=== PATIENT | male | born 1990 | race Hispanic/Latino ===

== ENCOUNTER 2025-02-14 10:25 | Inpatient (IN) | payer OTHER, SELFPAY ==
[2025-02-13] VITALS (8 sets, daily range): BP systolic 103–130; BP diastolic 60–89; BMI 39.6; BMI 38.6; BMI 38.3
[2025-02-13 15:03] LABS: Hematocrit 40.1 % (39.0-52.0); Hemoglobin 14.0 g/dL (13.0-18.0); Mean Corp Hgb Conc. 34.9 g/dL (33.0-37.0); Mean Corpuscular Volume 92.8 fL (80.0-94.0); Nucleated Red Blood Cells % 0 % (-); Platelet Count 204 10^3/uL (130-400); Red Cell Dist. Width 13.2 % (11.5-14.5)
[2025-02-13 15:19] LABS: ALT (SGPT) 52 U/L (0-50); AST (SGOT) 31 U/L (17-59); Albumin 4.5 g/dl (3.5-5.0); Alkaline Phosphatase 67 U/L (38-126); Blood Urea Nitrogen 14 mg/dl (9-20); Calcium 9.0 mg/dl (8.4-10.2); Carbon Dioxide 27 mmol/L (22-30); Chloride 103 mmol/L (98-107); Glucose 142 mg/dl (70-99); Lipase 91 U/L (23-300); Potassium 4.2 mmol/L (3.5-5.1); Sodium 136 mmol/L (135-145); Total Protein 7.0 g/dl (6.3-8.2); eGFR > 60.00
--- NOTE | 2025-02-13 15:53 | ED.GENMED ---
History of Present Illness
General
Chief Complaint: Abdominal Pain
Time Seen by Provider: 02/13/25 15:44
History of Present Illness
History of Present Illness:
Patient is a 35-year-old Cypriot-speaking male with no reported chronic medical problems here today for evaluation of approximately 1 day of right lower quadrant abdominal pain. The pain at times radiates into the right testicle. He also reports
associated nausea, vomiting, and fevers. No diarrhea. No urinary symptoms. No concern for a sexually transmitted infection. No other acute complaints.
Review of Systems
Review of Systems
All Other Systems: ROS reviewed and negative except as documented in HPI and ROS
Phy Exam
Physical Exam
Physical Exam:
GENERAL: Alert , in no apparent distress
EYE: normal conjunctiva
NECK: Supple
ENT: o/p clr, mmm.
CARDIAC: Regular rate and rhythm .
LUNGS: Clear breath sounds bilaterally, no acute respiratory distress, no wheezes/rales/rhonchi
ABDOMEN: Soft, moderately tender along the right lower quadrant, no rebound/guarding
GENITAL: slight discomfort with palpation along the right testicular region but there is no masses or swelling or rashes
NEUROLOGICAL: Alert and oriented, no focal neuro deficits
SKIN: Warm and dry, skin intact.
MUSCULOSKELETAL: No edema, well perfused.
PSYCH: Normal and appropriate interaction.
Course
Orders/Labs/Results
Orders:
Orders
02/13/25 14:51
Complete Blood Count/With Diff Urgent
Comprehensive Metabolic Panel Urgent
Lipase Urgent
02/13/25 15:51
CT Abd/pelvis W Iv Cont Urgent
Comment:
Reason For Exam: abd pain rlq, fever
02/13/25 16:21
Morphine Sulfate 4 mg IV NOW STA
Ondansetron Injectable [Zofran] 4 mg IV NOW STA
02/13/25 16:36
Urinalysis Reflex To Culture Urgent
Date Specimen was Collected: 02/13/25
Time Specimen was Collected: 16:31
Urine Microscopic Reflex Cult Urgent
Chlamydia/GC by PCR Urgent
DUY Source: Urine
Specimen Description:
Source:: URINE
Date Specimen was Collected: 02/13/25
Time Specimen was Collected: 16:31
Urine Culture Urgent
DUY Source: U
Specimen Description:
Date Specimen was Collected: 02/13/25
Time Specimen was Collected: 16:31
02/13/25 17:48
0.9% Sodium Chloride 1000 ml [Nss] 1,000 ml IV BOLUS
Acetaminophen 1000MG/100Ml [Ofirmev] 1,000 mg in 100 ml IV ONCE
Acetaminophen IV Indication:: Targeted Temp Management
Piperacillin/Tazo 3.375 Gram [Zosyn] 3.375 gram in 50 ml IV NOW
Abnormal Lab Results
02/13/25 02/13/25
14:51 16:36
WBC 16.4 H 10^3/uL
(4.8-10.8)
RBC 4.32 L 10^6/uL
(4.70-6.10)
MCH 32.4 H pg
(27.0-31.0)
Abs Immat Gran (auto) 0.1 H 10^3/uL
(0-0.05)
Absolute Neuts (auto) 14.7 H 10^3/uL
(1.4-6.5)
Absolute Lymphs (auto) 0.7 L 10^3/uL
(1.2-3.4)
Absolute Monos (auto) 0.9 H 10^3/uL
(0.1-0.6)
Neutrophils % 89.3 H %
(42.2-75.2)
Lymphocytes % 4.4 L %
(20.5-51.1)
Glucose 142 H mg/dl
(70-99)
Total Bilirubin 1.5 H mg/dl
(0.2-1.3)
ALT 52 H U/L
(0-50)
Urine Ketones 3+ A
(Negative)
Leukocyte Esterase Rfl 1+ A
(Negative)
Urine Bacteria (Reflex) Moderate A
(Negative)
Urine Albumin (Reflex) 1+ A
(Neg - Trace)
02/13/25 14:51
02/13/25 14:51
Vital Signs
Initial and Last Documented VS:
Initial Vital Signs
Temp Pulse Resp BP Pulse Ox
99.2 F 108 18 130/89 99
02/13/25 14:44 02/13/25 14:44 02/13/25 14:44 02/13/25 14:44 02/13/25 14:44
Last Documented Vital Signs
Temp Pulse Resp BP Pulse Ox
99.2 F 100 15 127/70 98
02/13/25 14:44 02/13/25 16:37 02/13/25 16:37 02/13/25 16:37 02/13/25 16:37
MDM/Problems Addressed
Differential Diagnosis Includes:
Patient is a 35-year-old Cypriot-speaking male with no reported chronic medical problems here today for evaluation of approximately 1 day of right lower quadrant abdominal pain. Overall, patient well-appearing. Vital signs remarkable for a mildly
elevated heart rate and temperature. Physical examination above. On examination the patient is moderately tender along the right lower quadrant. There is no rebound or guarding. There is also slight discomfort with palpation along the right
testicular region but there is no masses or swelling or rashes. No penile discharge. Blood work was obtained in triage which reveals a leukocytosis of 16.4 thousand. There is neutrophil predominance. There is also elevations in glucose to 142,
total bilirubin of 1.5, and ALT of 52. Remaining blood work within normal limits. We will add on urinalysis and a CT scan of the abdomen and pelvis with IV contrast. My primary concern would be acute appendicitis however differential also
includes a testicular pathology. If negative, patient may require ultrasound imaging of the scrotum.
02/13/2025 17:49: Preliminary read of CT reveals acute appendicitis without perforation. Case was discussed with general surgery who will evaluate patient at bedside. NPO. Will provide IV fluids, antibiotics with Zosyn, and IV Tylenol. Fever now
present to 102 �F.
*Pulse Oximetry
SaO2: 99
Oxygen Mode of Delivery: Room air
ED Attending Note
-
Portions of this chart may have been created with voice recognition software.� Occasional wrong word or��sound alike� substitutions may have occurred due to the inherent limitations of voice recognition software.
Discharge Plan
Departure
Patient Disposition: Admit
Date of Disposition: 02/13/25
Time of Disposition: 17:55
Admit to: OR
Admit to doctor: Damian Reynoso
Presentation/result/management discussed w/ accepting MD/DO: Damian Ryenoso, surgery
Patient with high blood pressure during this ER visit?: No
Discharge Problem:
Acute appendicitis
Referrals:
NONE,* [Family Provider, Internal Medicine]
Interventions
Interventions:
*Risk Screen - Suicide Last Done: 02/13/25 14:44
*General Assessment Last Done: 02/13/25 14:44
*Neglect/Abuse Screening Last Done: 02/13/25 14:44
HR-Ffwjlh-Fbbbiagcdk Assessment Last Done: 02/13/25 16:42
Discharge Date and Time
Print Language: RUSSIAN
[2025-02-13] MEDS: ZOFRAN 4 MG IV (16:32)
[2025-02-13] MEDS: MORPHINE SULFATE 4 MG IV (16:32)
[2025-02-13 16:48] LABS: Urine Character Clear (Clear)
[2025-02-13 16:58] LABS: Urine Red Blood Cell 0-2 /HPF (0-2); Urine Squamous Cell 0-2 /LPF (Few)
[2025-02-13] MEDS: NSS 1000 IV (17:55)
[2025-02-13] MEDS: ZOSYN 50 IV ×2 (17:56→23:05)
[2025-02-13] MEDS: OFIRMEV 100 IV (17:56)
--- NOTE | 2025-02-13 20:33 | W.SUR.PREOP ---
Pre-Operative Surgical Note
-
I have examined this patient prior to the performance of the scheduled procedure.
The patient's condition is unchanged from the time of the current History and
Physical and the patient is able to undergo the scheduled procedure.
--- NOTE | 2025-02-13 20:33 | HPS.HSE ---
Family Physician
-
Family Physician: Damian Reynoso MD
Chief Complaint
-
Abdominal pain
History of Present Illness
This is a 35-year-old Czech-speaking male with no significant medical or surgical history who presents with a 1 day history of a significant worsening right lower quadrant pain. The patient denies Fever, Chest Pain, Shortness Of Breath, Nausea,
Vomiting, changes in urinary and bowel habits, unintentional weight loss.
Medical History
Past Medical History
Past Medical History: Reports None
Past Surgical History: Reports None
Social History
Tobacco: Non-smoker
Personal: Single
Employment: Employed (Works in construction)
Family History
Family History: Not pertinent
Allergies / Home Medications
Allergies reflects when Allergies were last updated in [facility].
Home Medications with original date entered in [facility]
Allergy/Medication List:
None
Review of Systems
-
History Source: Patient
A 12 point ROS was completed and negative except as noted: Yes
Physical Exam
Vital Signs
Vital Signs
Temp Pulse Resp BP Pulse Ox
98.8 F 107 19 127/70 99
02/13/25 19:01 02/13/25 18:15 02/13/25 18:15 02/13/25 16:37 02/13/25 18:15
Physical Exam
General: Well Developed
HEENT: NormoCephalic
Respiratory: Clear
GI: Soft, Non Distended and Tender (Focally tender to palpation in the right lower quadrant)
Laboratory Results
-
02/13/25 14:51
02/13/25 14:51
Laboratory Results
Total Bilirubin 1.5 mg/dl (0.2-1.3) H 02/13/25 14:51
AST 31 U/L (17-59) 02/13/25 14:51
ALT 52 U/L (0-50) H 02/13/25 14:51
Alkaline Phosphatase 67 U/L (38-126) 02/13/25 14:51
Lipase 91 U/L (23-300) 02/13/25 14:51
Data Reviewed
-
CT Scan: Image Personally Visualized and interpreted, Report Reviewed by me, Discussed with Physician and Discussed with Patient
Lab Data: Labs Reviewed by me and Discussed with Patient
Impression/Plan
-
IMPRESSION: This is a 35-year-old male who presents with a 1 day history of sudden onset of right lower quadrant pain. Tachycardic, febrile, leukocytosis. Exam, imaging, blood work all consistent with acute appendicitis, likely with local
perforation.
PLAN:
Will plan for a laparoscopic appendectomy.
N.p.o., IV fluids, IV antibiotics.
Risks/Benefits/Alternatives, expected postoperative course and possible complications (bleeding, infection, injury to surrounding structures, acute/chronic pain) discussed at length. Patient wishes to proceed with surgery. All questions answered.
Consent obtained.
I spent 75 minutes in total for the care of this patient today including direct patient care and counseling, reviewing labs, imaging, coordination of care, as well as documentation.
--- NOTE | 2025-02-13 20:39 | W.IMMPOSTOP ---
Surgical Immed Post Op Note
-
Primary Surgeon: Damian Reynoso MD
Assisting Surgeon: None
Pre-op Diagnosis: Acute appendicitis
Post-op Diagnosis: Acute perforated gangrenous appendicitis
Procedure Performed:
1. Laparoscopic appendectomy
2. Drainage of intra-abdominal abscess
Anesthesia Type: General
Specimen / Cultures: Right lower quadrant abscess
Estimated Blood Loss: 7 cc
Complications: None
Operative Findings: Perforated necrotic retrocecal appendix with focal abscess that was cultured. After dividing the mesentery the base of the appendix was isolated and noted to be healthy so was ligated with 2-0 PDS Endoloops. Given the degree of
contamination, a 19 Polish round Al drain was introduced through the left lower quadrant port and secured to the skin with a 2-0 Prolene suture.
POST OP PLAN:
Imaging: None
Labs: Routine AM
Diet: Clears, expect ileus
Analgesia: Tylenol 650mg q6 Shira, Dilaudid 0.5mg q2h PRN
Neuro/vascular checks: Per unit protocol
AC/AP: Hold Therapeutic AC, Ok for DVT PPx
Activity: Ad Tabatha
Wound/Incisions/Drains: Routine
Abx: Zosyn or equivalent x 4 days
Dispo: RNF
[2025-02-13] MEDS: DILAUDID 0.25 MG IV (20:40)
--- NOTE | 2025-02-13 20:41 | OR.RPT ---
Operative Report
Operative Report
Patient Name: Diomedes Luis
: 1990
Date of Operation: 02/13/2025
Preoperative Diagnosis: Acute Appendicitis
Postoperative Diagnosis: Acute perforated gangrenous appendicitis
Procedure(s):
Laparoscopic Appendectomy
Drainage of an intra-abdominal abscess
Surgeon(s):
Dr. Reynoso
Hydroelectric Systems Technician(s):
None
Anesthesia: General
Estimated Blood Loss: 7 cc
Urine Output: None
Drains/Lines/Implants: 19 Japanese round Al drain
Specimens:
1. Appendix
HPI/Surgical Indications:
This is a 35-year-old male who presents with a 1 day history of abdominal pain. Exam, labs and imaging are consistent with acute appendicitis. Risks/Benefits/Alternatives were discussed at length, and the patient agreed to proceed with surgery.
Operative Findings: Perforated necrotic retrocecal appendix with focal abscess that was cultured. After dividing the mesentery the base of the appendix was isolated and noted to be healthy so was ligated with x2 0 PDS Endoloops. Given the degree
of contamination, a 19 Japanese round Al drain was introduced through the left lower quadrant port and secured to the skin with a 2-0 Prolene suture.
Procedure Description:
The patient was placed in the supine position, with the left arm tucked, and general anesthesia was induced. The abdomen was prepared and draped in a sterile fashion so as to expose the entire abdomen. A surgical time out was taken. Abdominal access
was obtained with a left upper quadrant Veress entry which required a single pass followed by left lower quadrant 5 mm Optiview trocar. After confirming no injury on entrance, two additional 5mm ports were placed in the suprapubic area just off
midline and just below the umbilicus. The patient was placed in Trendelenberg with the right slightly up . The appendix was identified and found to be necrotic/gangrenous without focal perforation and somewhat retrocecal location. The appendix was
freed and rotated into its proper orientation. A window was created in the mesoappendix. Using a laparoscopic bipolar energy device, the meso appendix was divided. The base of the appendix appeared uninvolved and was ligated/divided using two 0-PDS
Endoloops and the energy device. The appendix was placed in a specimen retrieval bag. The right lower quadrant and pelvis was irrigated and suctioned until dry. A 19 Japanese round Al drain was then introduced through the left lower quadrant port
and passed across the abdomen into the right lower quadrant. Hemostasis was confirmed and the ports were removed under visualization. The specimen was passed off the field. The umbilical port was closed with a [id number] 0-PDS and the skin for
all ports was closed with interrupted monocryls and covered with dermabond. The patient was awoken from anesthesia in good condition and transported to the recovery area.
I was the attending physician and performed the procedure with no assistance. I was present for all portions of the case.
Damian Reynoso MD
[2025-02-13] MEDS: NORMOSOL-R/PLASMALYTE-A 1000 IV (22:05)
[2025-02-13] MEDS: TORADOL 10 MG IV (22:10)
[2025-02-13] MEDS: TYLENOL 650 MG PO (23:03)
[2025-02-14 03:00] VITALS: BP 121/71
[2025-02-14] MEDS: TYLENOL PO (05:24)
[2025-02-14] MEDS: TORADOL 10 MG IV ×4 (05:26→21:03)
[2025-02-14] MEDS: ZOSYN 50 IV ×3 (05:27→17:24)
[2025-02-14 06:49] LABS: Hematocrit 36.2 % (39.0-52.0); Hemoglobin 12.5 g/dL (13.0-18.0); Mean Corp Hgb Conc. 34.5 g/dL (33.0-37.0); Mean Corpuscular Volume 94.5 fL (80.0-94.0); Platelet Count 178 10^3/uL (130-400); Red Cell Dist. Width 13.3 % (11.5-14.5)
[2025-02-14 07:14] LABS: Blood Urea Nitrogen 16 mg/dl (9-20); Calcium 8.4 mg/dl (8.4-10.2); Carbon Dioxide 27 mmol/L (22-30); Chloride 104 mmol/L (98-107); Estimated Creatinine Clearance 105 ml/min; Glucose 160 mg/dl (70-99); Potassium 4.1 mmol/L (3.5-5.1); Sodium 137 mmol/L (135-145); eGFR > 60.00
[2025-02-14 07:26] VITALS: BP 117/66
[2025-02-14] MEDS: TYLENOL 650 MG PO ×4 (08:59→21:03)
[2025-02-14] MEDS: NORMOSOL-R/PLASMALYTE-A 1000 IV ×2 (09:14→22:12)
--- NOTE | 2025-02-14 09:43 | W.PN.GS2 ---
Addendum entered and electronically signed by Arturo Walton MD 02/14/25 11:19:
Patient seen and examined.
No major complaints. Denies worsening abdominal pain. No nausea or vomiting. Reports passing flatus, no BM.
Gen: NAD
Abd: soft, mild tenderness, ND, non-peritoneal, incisions c/d/i - no erythema, ecchymosis or drainage, ELIZABETH serosang mild purulence in tubing with strip
Patient is a 35 yo M presenting with acute perforated gangrenous appendicitis now POD #1 lap appi with drainage of intraabdominal abscess
Afebrile since OR, VSS
Leukocytosis improving
High risk for ileus, but currently passing flatus and tolerating clear liquids
ELIZABETH with SSF
Plan:
-- Advance to full liquids and follow for po tolerance
-- C/W IVF
-- C/W ELIZABETH drain
-- Analgesics with scheduled Tylenol/toradol and prn narcotics
-- C/W IV zosyn, plan a total of 4 day course of abx (transition to PO upon d/c)
-- Lovenox for VTE ppx
Original Note:
Today's Communication / Plan
-
C/W ABX
Dietary advancements
Assessment / Plan
-
35 yo male presenting with acute perforated gangrenous appendicitis now POD #1 lap appi with drainage of intraabdominal abscess
Afebrile since OR, VSS
Leukocytosis improving
High risk for ileus, but currently passing flatus and tolerating clear liquids
ELIZABETH with SSF
Plan:
Advance to full liquids and follow for po tolerance
C/W IVF
C/W ELIZABETH drain
Analgesics with scheduled Tylenol/toradol and prn narcotics
C/W IV zosyn, plan a total of 4 day course of abx (transition to PO upon d/c)
Lovenox for VTE ppx
Subjective Data
-
Date of Service: February 14, 2025
Pt seen and examined at bedside with Dr. Walton. Denies n/v. Passing some flatus. Asking for food. Pain well managed.
Objective Data
-
Intake and Output
02/13/25 02/14/25 02/15/25
06:59 06:59 06:59
Intake Total 1165 / 1165 240 / 240
Output Total 655 / 655
Balance 1165 / 1165 -415 / -415
Intake:
Oral fluids 240 / 240 240 / 240
IV fluids (Total) 825 / 825
normosol 50 / 50
IV piggybacks 100 / 100
Output:
Drain Output (Total) 5 / 5
Left Patricio-Chan 5 / 5
Urine, Voided 650 / 650
Vital Signs
Temp Pulse Resp BP Pulse Ox
97.7 F 77 16 117/66 98
02/14/25 07:26 02/14/25 07:26 02/14/25 07:26 02/14/25 07:26 02/14/25 07:26
Lab Results
02/14/25 06:08
02/14/25 06:08
Calcium 8.4 mg/dl (8.4-10.2) 02/14/25 06:08
Total Bilirubin 1.5 mg/dl (0.2-1.3) H 02/13/25 14:51
AST 31 U/L (17-59) 02/13/25 14:51
ALT 52 U/L (0-50) H 02/13/25 14:51
Alkaline Phosphatase 67 U/L (38-126) 02/13/25 14:51
Total Protein 7.0 g/dl (6.3-8.2) 02/13/25 14:51
Albumin 4.5 g/dl (3.5-5.0) 02/13/25 14:51
Physical Exam
-
NAD
ABD soft, ND, mildly tender, BOTTOM STAINER
Incisions intact glue, well approximated
ELIZABETH with ssf with some fibrinous debris
[2025-02-14 11:04] VITALS: BP 127/64
[2025-02-14 15:29] VITALS: BP 131/66
[2025-02-14] MEDS: LOVENOX 40 MG SC (17:23)
[2025-02-14 19:00] VITALS: BP 116/68
[2025-02-14 23:00] VITALS: BP 131/73
[2025-02-15] MEDS: ZOSYN 50 IV ×4 (00:26→18:03)
[2025-02-15] MEDS: TYLENOL 650 MG PO ×4 (00:26→21:42)
[2025-02-15] MEDS: TORADOL 10 MG IV (04:10)
[2025-02-15 07:49] VITALS: BP 132/76
[2025-02-15] MEDS: TYLENOL PO ×2 (08:19→16:29)
[2025-02-15] MEDS: NORMOSOL-R/PLASMALYTE-A IV (10:37)
[2025-02-15] MEDS: D5/0.45%NACL 500 IV (10:37)
[2025-02-15 10:45] LABS: Hematocrit 31.8 % (39.0-52.0); Hemoglobin 11.0 g/dL (13.0-18.0); Mean Corp Hgb Conc. 34.6 g/dL (33.0-37.0); Mean Corpuscular Volume 93.5 fL (80.0-94.0); Platelet Count 172 10^3/uL (130-400); Red Cell Dist. Width 12.6 % (11.5-14.5)
[2025-02-15 11:03] LABS: Blood Urea Nitrogen 15 mg/dl (9-20); Calcium 8.5 mg/dl (8.4-10.2); Carbon Dioxide 27 mmol/L (22-30); Chloride 107 mmol/L (98-107); Estimated Creatinine Clearance 105 ml/min; Glucose 115 mg/dl (70-99); Potassium 3.6 mmol/L (3.5-5.1); Sodium 137 mmol/L (135-145); eGFR > 60.00
--- NOTE | 2025-02-15 12:33 | W.PN.GS2 ---
Today's Communication / Plan
-
-- LRD
-- Abx: Zosyn
Assessment / Plan
-
35 yo male presenting with acute perforated gangrenous appendicitis now POD #2 lap appi with drainage of intraabdominal abscess
Low grade fever, VSS
Leukocytosis resolved
High risk for ileus, but currently passing flatus, BMs and and tolerating fulls
ELIZABETH with purulence
Plan to monitor in the hospital for an additional day for dietary tolerance, antibiotics, and ELIZABETH drain management
Plan:
-- LRD
-- HLIV
-- C/W ELIZABETH drain
-- Pain control: Tylenol, Toradol and prn narcotics
-- Abx: Zosyn
-- DVT: Lovenox
Subjective Data
-
Date of Service: February 15, 2025
Reports of mild abdominal soreness, no worse from previous. No nausea or vomiting. Passing loose stools and some flatus. Low-grade fevers at this morning. Ambulating. Voiding.
Objective Data
-
Intake and Output
02/14/25 02/15/25 02/16/25
06:59 06:59 06:59
Intake Total 1165 / 1165 3400 / 3400
Output Total 673 / 673
Balance 1165 / 1165 2727 / 2727
Intake:
Oral fluids 240 / 240 800 / 800
IV fluids (Total) 825 / 825 2400 / 2400
normosol 50 / 50
IV piggybacks 100 / 100 200 / 200
Output:
Drain Output (Total)
Left Patricio-Chan
Urine, Voided 650 / 650
Other:
Number of approximated MODERATE 2
amounts of urine
Vital Signs
Temp Pulse Resp BP Pulse Ox
100.5 F H 91 16 132/76 98
02/15/25 07:49 02/15/25 07:49 02/15/25 07:49 02/15/25 07:49 02/15/25 07:49
Lab Results
02/15/25 10:13
02/15/25 10:13
Calcium 8.5 mg/dl (8.4-10.2) 02/15/25 10:13
Total Bilirubin 1.5 mg/dl (0.2-1.3) H 02/13/25 14:51
AST 31 U/L (17-59) 02/13/25 14:51
ALT 52 U/L (0-50) H 02/13/25 14:51
Alkaline Phosphatase 67 U/L (38-126) 02/13/25 14:51
Total Protein 7.0 g/dl (6.3-8.2) 02/13/25 14:51
Albumin 4.5 g/dl (3.5-5.0) 02/13/25 14:51
Physical Exam
-
Gen: NAD
Abd: soft, mild tenderness, mild distension, non-peritoneal, incisions c/d/i - no erythema, ecchymosis or drainage, ELIZABETH low volume purulent
Patient has a leonard catheter: No
Patient has a central line: No
--- NOTE | 2025-02-15 15:22 | CM ---
Addendum entered by Ashley Newman RN 02/15/25 15:31:
Pt not in care port
Original Note:
Alert awake oriented Pt speaks Sudanese but understands Indonesian, He lives with his brother Joo and an apartment with 5 steps to enter. He works and drives and is independent in all ADLs.Pt has no insurance. [employer] called and explained patient has no
coverage. Pt given Sudanese information on [facility]. He said he will call.Pt has drain. [facility] resident who will follow pt and remove drain . Resident texted patient will be followed up by Dr Brown and they will contact patient for drain removal
after discharge.
NO VN/SNF hx.
Pharmacy [place] [phone]
PCP none [facility] handout given in Sudanese
PLAN Home no needs
[2025-02-15 16:14] VITALS: BP 136/89
[2025-02-15] MEDS: LOVENOX 40 MG SC (18:03)
[2025-02-15 23:10] VITALS: BP 129/73
[2025-02-16 00:01] VITALS: BP 129/73
[2025-02-16] MEDS: ZOSYN 50 IV ×3 (00:48→12:31)
[2025-02-16] MEDS: TYLENOL 650 MG PO (00:48)
[2025-02-16] MEDS: TYLENOL PO ×3 (04:54→12:35)
[2025-02-16 08:06] VITALS: BP 140/88
[2025-02-16 12:00] VITALS: BP 134/60
--- NOTE | 2025-02-16 12:55 | W.PN.GS2 ---
Today's Communication / Plan
-
-- DC ELIZABETH drain
-- Abx: Zosyn, plan to DC on Ciprofloxacin and Flagyl for 7 days
-- DC today
Assessment / Plan
-
35 yo male presenting with acute perforated gangrenous appendicitis now POD #3 lap appi with drainage of intraabdominal abscess
Afebrile, VSS
Leukocytosis resolved
High risk for ileus, but currently passing flatus, BMs and and tolerating fulls
ELIZABETH cleared to serous
Plan to DC ELIZABETH and discharge today. Will need outpatient antibiotics, based on culture data with one of his microorganisms resistant to Augmentin will plan on discharge on Cipro and Flagyl.
Plan:
-- LRD
-- HLIV
-- DC ELIZABETH drain
-- Pain control: Tylenol, Toradol and prn narcotics
-- Abx: Zosyn, plan to DC on Ciprofloxacin and Flagyl
-- DVT: Lovenox
-- DC today
Subjective Data
-
Date of Service: February 16, 2025
No major complaints. Pain stable. No nausea or vomiting. Passing flatus and loose stools. No fevers.
Objective Data
-
Intake and Output
02/15/25 02/16/25 02/17/25
06:59 06:59 06:59
Intake Total 3400 / 3400 1440 / 1440
Output Total 673 / 673
Balance 2727 / 2727 1410 / 1410
Intake:
Oral fluids 800 / 800 1440 / 1440
IV fluids (Total) 2400 / 2400
IV piggybacks 200 / 200
Output:
Drain Output (Total)
Left Patricio-Chan
Urine, Voided 650 / 650
Other:
Number of approximated MODERATE 2 3
amounts of urine
Vital Signs
Temp Pulse Resp BP Pulse Ox
98.6 F 86 16 140/88 98
02/16/25 08:06 02/16/25 08:06 02/16/25 08:06 02/16/25 08:06 02/16/25 08:22
Lab Results
02/15/25 10:13
02/15/25 10:13
Calcium 8.5 mg/dl (8.4-10.2) 02/15/25 10:13
Total Bilirubin 1.5 mg/dl (0.2-1.3) H 02/13/25 14:51
AST 31 U/L (17-59) 02/13/25 14:51
ALT 52 U/L (0-50) H 02/13/25 14:51
Alkaline Phosphatase 67 U/L (38-126) 02/13/25 14:51
Total Protein 7.0 g/dl (6.3-8.2) 02/13/25 14:51
Albumin 4.5 g/dl (3.5-5.0) 02/13/25 14:51
Physical Exam
-
Gen: NAD
Abd: soft, mild tenderness, ND, non-peritoneal, incisions c/d/i - no erythema, ecchymosis or drainage, ELIZABETH serous, no purulence
Patient has a leonard catheter: No
Patient has a central line: No
--- NOTE | 2025-02-16 13:03 | W.DS.TRANS ---
Addendum entered and electronically signed by DERRICK Epps 02/16/25 13:59:
dictated #[id number]
Original Note:
DC Summary - Fieldwork Coordinator
-
Discharge Instructions:
Discharge Diagnosis/Procedures Perforated and gangrenous appendicitis s/p
laparoscopic appendectomy
Diet As tolerated,Regular
Additional Diets Eat small meals at first
Activity No strenuous activity
Additional Activity Do not lift over 15lbs for the next 2-3 weeks
Bathing Restrictions OK to Shower
Wound Care Cover where your drain was with a dry gauze
bandage. Ok to remove for showers. Change daily
and as needed until drainage no longer present
then ok to leave dressing off.
Instructions:
Stand-Alone Forms:
Changes to Home Medications: No
Discharge Medications:
DC Medications w/original date entered in [facility]
acetaminophen 325 mg tablet 650 mg (2 x 325 mg) PO Q4HPRN PRN mild pain #1 tab 02/16/25
ciprofloxacin HCl 500 mg tablet 500 mg PO Q12H #14 tabs 02/16/25
ibuprofen 200 mg tablet 400 - 600 mg (2 - 3 x 200 mg) PO Q6HPRN PRN moderate pain #1 tab 02/16/25
metronidazole 500 mg tablet 500 mg PO Q8H 7 days #21 tabs 02/16/25
tramadol 50 mg tablet 25 - 50 mg (0.5 - 1 x 50 mg) PO Q6HPRN PRN severe pain/breakthrough pain #5 tabs 02/16/25
Home Medication Changes
Pending Results: No
--- NOTE | 2025-02-16 13:19 | CM ---
entered order for discharge.
Brother Joo will drive pt home.
Pt given Japanese information on [facility]. He said he will call.
Pt has ELIZABETH drain.Resident who will follow pt and remove drain . Resident said patient will be followed up by Dr Brown x 1 week for ELIZABETH removal.
LM with [facility] LM pt has no insurance.
PLAN Home with no needs FU with ELIZABETH removal x 1week With Dr Mcnally
--- NOTE | 2025-02-16 14:18 | PTCARENOTE ---
patient's pain controlled, tolerating diet, independent in room, ambulating frequently, vss, for discharge to home
== END 2025-02-16 15:00 | disposition home or self-care (01) | DRG 399 ==
LOC: 3 WEST ACU 10:25
PROVIDERS: Emergency Medicine; Physician Assistant; Registered Nurse; ADMITTING PHYSICIAN Surgery; EMERGENCY PHYSICIAN Student in an Organized Health Care Education/Training Program
PROC: 0W9G40Z Drainage of Peritoneal Cavity with Drainage Device, Percutaneous Endoscopic Approach (ICD-10-PCS; 2025-02-13)
PROC: 0DTJ4ZZ Resection of Appendix, Percutaneous Endoscopic Approach (ICD-10-PCS; 2025-02-13)
DX: K35.33 Acute appendicitis with perforation, localized peritonitis, and gangrene, with abscess (principal); Z60.3 Acculturation difficulty
CPT/HCPCS: 74177; 80048; 80053; 81003; 81015; 83690; 85025; 85027; 87070; 87075; 87076; 87077; 87086; 87185; 87186; 87205; 87491; 87591; 88304; 96361; 96365; 96375; 99285; Q9967